=== PATIENT | female | born 1930 | race Caucasian/White ===

== ENCOUNTER 2019-04-17 18:48 | Inpatient (IN) | payer MEDICARE, OTHER ==
[2019-04-17] MEDS ORDERED: BABY ASPIRIN 81 MG CHEW PO ONE (18:58)
[2019-04-17] MEDS ORDERED: ROCEPHIN 1 Gm-D5w 50 ml Bag** 1 G/50 ML IVPB IV ONE (19:08)
[2019-04-17] MEDS: DUONEB 0.5-3 MG/3 ml Neb IH PRN ×2 (19:18→19:40)
[2019-04-17] MEDS ORDERED: Zithromax 500 MG/ 250 ML NaCl Premix 500 MG/250 ML IVPB IV ONE (19:39)
[2019-04-17 20:00] LABS: Absolute Neutrophil Ct (ANC) 3.46 (1.4-6.9); BASOPHIL % 0.6 % (0.0-0.4); Basophil (Absolute #) 0.03 (0-0.4); Eosinophil % 1.5 % (0.00-5.0); Eosinophil (Absolute #) 0.07 (0-0.5); Hematocrit 37.5 % (35-47); Hemoglobin 12.6 gm/dl (12.0-16.0); Lymphocytes % 14.8 % (24.0-44.0); Mean Cell Volume 92.1 fl (78-100); Mean Corpuscular Hgb Concent. 33.6 g/dl (32-36); Mean Platelet Volume 11.4 fl (7.5-11.0); Monocyte (Absolute #) 0.47 (0.0-1.3); Monocytes % 9.9 % (0.0-12.0); Neutrophil % 73.2 % (36.0-66.0); Platelet Count 112 K/mm3 (150-450); Red Blood Count 4.07 M/mm3 (4.1-5.4); Red Cell Distribution Width 12.2 % (11.5-14.0); White Blood Count 4.7 K/mm3 (4.0-10.5)
[2019-04-17 20:03] LABS: INR 1.13 (0.8-3.0); PROTIME 12.8 SECONDS (9.95-12.35)
[2019-04-17 20:16] LABS: ALBUMIN 3.8 g/dL (3.5-5.0); ANION GAP 12.6 MEQ/L (5-15); BILIRUBIN,TOTAL 0.5 mg/dL (0.2-1.3); Creatinine 1 1.34 mg/dL (0.52-1.04); MAGNESIUM 1.7 mg/dL (1.6-2.3); Potassium 4.3 mmol/L (3.5-5.1); Total Protein 7.2 g/dL (6.3-8.2)
[2019-04-17] MEDS ORDERED: Zofran 4 MG/2 ML VIAL ONE (20:18)
[2019-04-18] MEDS ORDERED: TYLENOL 325 MG ONE (01:33)
[2019-04-18] MEDS: solu-MEDROL 125 MG IV SCH ×3 (08:15→21:28)
--- NOTE | 2019-04-18 09:24 | XRAY ---
Indication: Cough and dyspnea. Comparison: February 26, 2017. Portable chest again hyperinflated with left lung suture material. No focal infiltrate, consolidation, or large effusion. Heart is not enlarged for AP portable technique. Bony thorax intact again with mild osteopenia and degenerative changes. Impression: Nonacute hyperinflated chest with chronic features.
--- NOTE | 2019-04-18 09:24 | HP ---
CHIEF COMPLAINT: Cough, shortness of breath, weakness. HISTORY OF PRESENT ILLNESS: The patient is an 88 year-old white female who developed a cough which she reports is slightly productive of greenish phlegm with increasing shortness of breath and weakness and presented to the emergency room where she was diagnosed with right lower lobe pneumonia. PAST MEDICAL HISTORY: Otherwise significant for diabetes mellitus type 2, gastroesophageal reflux disease and hypertension. HOME MEDICATIONS: Chlorthalidone 25 mg daily, Glipizide 5 mg daily, lansoprazole 30 mg daily, Lisinopril 40 mg daily, metoprolol sustained release 100 mg daily. ALLERGIES: SULFA. PHYSICAL EXAMINATION: Revealed an elderly white female currently in no obvious distress. She does have a productive sounding cough. VITAL SIGNS: On admission showed temperature 98.3F, pulse 77, respiratory rate 22 and blood pressure 185/91. O2 saturation 91%. HEENT: Normocephalic, atraumatic. Pupils equal round reactive to light. Extraocular movements intact. Oropharynx is pink and moist. NECK: Supple without lymphadenopathy, thyromegaly or JVD. CHEST: Reveals slight wheezes particularly on the right side. HEART: Regular rate and rhythm without murmurs, rubs or gallops. ABDOMEN: Soft. No palpable masses. EXTREMITIES: Without cyanosis, clubbing or edema. NEUROLOGIC: The patient is alert and oriented x3. LAB DATA AND TESTS: The patient's emergency room evaluation otherwise included laboratory studies showing white count of 4,700, hemoglobin of 12.6, PLT count 112,000 with what appeared to be a slight left shift with 73.3% granulocytes. Metabolic panel showed glucose 145 nonfasting, BUN 27, creatinine 1.34. Electrolytes normal. Liver enzymes were normal. ProBNP was normal. The international normalized ratio is 1.13. Troponin less than 0.012. ASSESSMENT: A patient with pneumonia. She has been admitted to the hospital for IV antibiotics. She has already received Rocephin and Zithromax in the emergency room. She was getting nebulizer treatments. We will provide her flutter valve oxygen support to keep her saturations above 90%. The patient will receive Solu-Medrol at 80 every 8 hours for her what appears to be exacerbation of chronic obstructive pulmonary disease as well as the pneumonia.
[2019-04-18] MEDS: Mucinex 600MG ER Tabs PO SCH ×2 (09:39→21:17)
[2019-04-18] MEDS: Ecotrin 325 MG PO SCH (09:39)
[2019-04-18] MEDS: Zithromax 250 MG TABLET PO SCH (09:39)
[2019-04-18] MEDS: Glucotrol 5 MG PO SCH (09:40)
[2019-04-18] MEDS: Protonix 40MG Tablet PO SCH (09:40)
[2019-04-18] MEDS: Toprol Xl 100 MG PO SCH (09:40)
[2019-04-18] MEDS: hydroDIURIL 25 MG PO SCH (09:40)
[2019-04-18] MEDS: Zestril 20 MG PO SCH (09:40)
[2019-04-18] MEDS ORDERED: ROCEPHIN 1 Gm-D5w 50 ml Bag** 1 G/50 ML IVPB IV SCH (10:00)
[2019-04-18] MEDS ORDERED: NON-FORMULARY ITEM (Chlorthalidone [Chlorthalidone] 25 MG) PO SCH (10:00)
[2019-04-18] MEDS ORDERED: Zithromax 500 MG/ 250 ML NaCl Premix 500 MG/250 ML IVPB IV SCH (10:00)
[2019-04-18] MEDS ORDERED: NON-FORMULARY ITEM (Lisinopril [Lisinopril] 40 MG) PO SCH (10:00)
[2019-04-18] MEDS ORDERED: Sodium Chloride 0.9% 10 ML FLUSH Syringe IV PRN (15:00)
[2019-04-18] MEDS: NovoLOG Insulin SQ PRN ×2 (16:17→21:18)
[2019-04-18] MEDS: TYLENOL 325 MG PO PRN (21:17)
[2019-04-18] MEDS: ROCEPHIN 1 Gm-D5w 50 ml Bag** 1 G/50 ML IVPB IV SCH (21:17)
[2019-04-18] MEDS: Sodium Chloride 0.9% 10 ML FLUSH Syringe IV SCH (21:18)
[2019-04-19] MEDS: solu-MEDROL 125 MG IV SCH ×3 (06:17→21:23)
[2019-04-19] MEDS: Sodium Chloride 0.9% 10 ML FLUSH Syringe IV SCH ×3 (06:17→21:24)
[2019-04-19 09:09] LABS: Appearance CLEAR (CLEAR); Bilirubin NEGATIVE (NEGATIVE); Blood NEGATIVE Ery/ul (0-5); Epithelial Cells RARE /HPF (FEW); Glucose NEGATIVE (NEGATIVE); Ketones TRACE (NEGATIVE); Leukocyte Esterase TRACE (NEGATIVE); Mucus SLIGHT /HPF (NEGATIVE); Nitrite NEGATIVE (NEGATIVE); Protein,Urine Dip NEGATIVE (Negative); Specific Gravity 1.024 (1.005-1.025); Urobilinogen NEGATIVE mg/dL (0-1)
[2019-04-19 09:11] LABS: Bacteria NONE SEEN /HPF (NEGATIVE)
--- NOTE | 2019-04-19 09:17 | PCM.NOTE ---
Date and Time: 04/19/19914 Subjective Assessment: Pt. feeling better today, no longer requiring oxygen, apetite good, concerned about elevation of her blood sugars. - Review of Systems Constitutional: No Fever, No Chills Ears, Nose, & Throat: No Symptoms Respiratory: Wheezing Cardiac: No Chest Pain, No Edema, No Syncope Abdominal/Gastrointestinal: No Abdominal Pain, No Nausea, No Vomiting, No Diarrhea Genitourinary Symptoms: No Dysuria Skin: No Rash Objective Exam General Appearance: no apparent distress, alert Neurologic Exam: alert Skin Exam: normal color, warm, dry Ears, Nose, Throat Exam: normal ENT inspection, pharynx normal, moist mucous membranes Neck Exam: normal inspection, non-tender, supple, full range of motion Respiratory Exam: normal breath sounds (decreased air flow in lower lung pickens) Cardiovascular Exam: regular rate/rhythm, normal heart sounds OBJECTIVE DATA Vital Signs: Vital Signs - 24 hr Temp Pulse Resp BP Pulse Ox 04/19/19 08:00 97.7 F 66 20 168/71 97 04/19/19 06:54 56 L 16 97 04/19/19 03:41 98.3 F 57 L 17 142/66 93 L 04/18/19 23:51 98.4 F 61 18 136/63 92 L 04/18/19 20:00 98.0 F 66 18 146/64 91 L 04/18/19 19:43 56 L 18 94 L 04/18/19 16:00 98.7 F 54 L 18 131/78 98 04/18/19 12:00 97.7 F 67 20 138/66 95 04/18/19 10:18 74 16 96 Oxygen-Last 24 hours O2 Percentage 2 Liters = 28% O2 Percentage 2 Liters = 28% O2 Percentage 2 Liters = 28% Pain Assessment - Last Documented Pain Intensity 0 Pain Scale Used 0-10 Pain Scale,FLACC Intake and Output: Intake & Output 04/16/19 04/17/19 04/18/19 04/19/19 11:59 11:59 11:59 11:59 Intake Total 480 1040 Output Total 400 300 Balance 80 740 Weight 74.843 kg 74.843 kg Lab Results: Accuchecks Date 04/19/19 Date 04/18/19 Date 04/18/19 Date 04/18/19 Date 04/18/19 Time 08:30 Time 16:20 Time 16:20 Time 11:20 Time 11:42 Accucheck Value: 180 Accucheck Value: 248 Accucheck Value: 223 Accucheck Value: 189 Accucheck Value: 189 Lab Results-Last 24 Hours 04/18/19 04/19/19 Range/Units 05:30 06:30 Hemoglobin A1c 6.14 H (4.5-6.0) % Urine Color YELLOW (YELLOW) Urine Appearance CLEAR (CLEAR) Urine pH 5.0 (5-6) Ur Specific [place] 1.024 (1.005-1.025) Urine Protein NEGATIVE (Negative) Urine Ketones TRACE (NEGATIVE) Urine Blood NEGATIVE (0-5) Mukul/ul Urine Nitrite NEGATIVE (NEGATIVE) Urine Bilirubin NEGATIVE (NEGATIVE) Urine Urobilinogen NEGATIVE (0-1) mg/dL Ur Leukocyte Esterase TRACE (NEGATIVE) Urine WBC (Auto) 3-5 (0-5) /HPF Urine RBC (Auto) NONE (0-2) /HPF U Hyaline Cast (Auto) 6-10 (0-2) /LPF U Epithel Cells (Auto) RARE (FEW) /HPF Urine Bacteria (Auto) NONE SEEN (NEGATIVE) /HPF Other Casts (Auto) NEGATIVE (NEGATIVE) /LPF Urine Mucus (Auto) SLIGHT (NEGATIVE) /HPF Urine Culture Reflexed NO (NO) Urine Glucose NEGATIVE (NEGATIVE) mg/dL Radiology Exams: Radiology Procedures Category Date Time Status CHEST 1 VIEW (PORTABLE) Stat Exams 04/17/19 18:59 Completed Multi-Disciplinary Progress Notes: Multi-Disciplinary Progress Notes 04/18/19 21:30 Respiratory Note by Derrek Arteaga USED FLUTTER W/ PT DURING MY ASSESSMENT AND MADE HER SDC. PT AWARE OF NEED/USE FOR DEVICE AND KNOWS TO CALL FOR RT IF NEEDED. Initialized on 04/18/19 21:30 - END OF NOTE 04/18/19 15:03 Respiratory Note by Sangeetha Khan RESTING SPO2 89-90%. PT DID COMPLAIN OF SOB DURING FLUTTER AND COUGHING. PT WANTED TO PUT O2 ON AT THIS TIME Initialized on 04/18/19 15:03 - END OF NOTE Assessment/Plan (1) COPD (chronic obstructive pulmonary disease) Current Visit: Yes Status: Acute Assessment & Plan: improved continue iv abx and iv steroids (2) Pneumonia Current Visit: Yes Status: Acute Assessment & Plan: continue iv abx Code(s): J18.9 - PNEUMONIA, UNSPECIFIED ORGANISM
[2019-04-19] MEDS: Zestril 20 MG PO SCH (09:21)
[2019-04-19] MEDS: Ecotrin 325 MG PO SCH (09:21)
[2019-04-19] MEDS: Toprol Xl 100 MG PO SCH (09:21)
[2019-04-19] MEDS: Glucotrol 5 MG PO SCH (09:21)
[2019-04-19] MEDS: hydroDIURIL 25 MG PO SCH (09:21)
[2019-04-19] MEDS: Protonix 40MG Tablet PO SCH (09:21)
[2019-04-19] MEDS: Zithromax 250 MG TABLET PO SCH (09:21)
[2019-04-19] MEDS: Mucinex 600MG ER Tabs PO SCH ×2 (09:21→21:23)
[2019-04-19] MEDS: TYLENOL 325 MG PO PRN (21:23)
[2019-04-19] MEDS: ROCEPHIN 1 Gm-D5w 50 ml Bag** 1 G/50 ML IVPB IV SCH (21:24)
[2019-04-20] MEDS: solu-MEDROL 125 MG IV SCH (05:46)
[2019-04-20] MEDS: Sodium Chloride 0.9% 10 ML FLUSH Syringe IV SCH (05:46)
[2019-04-20] MEDS: hydroDIURIL 25 MG PO SCH (08:39)
[2019-04-20] MEDS: Zithromax 250 MG TABLET PO SCH (08:39)
[2019-04-20] MEDS: Mucinex 600MG ER Tabs PO SCH (08:40)
[2019-04-20] MEDS: Toprol Xl 100 MG PO SCH (08:40)
[2019-04-20] MEDS: Glucotrol 5 MG PO SCH (08:40)
[2019-04-20] MEDS: Zestril 20 MG PO SCH (08:40)
[2019-04-20] MEDS: Protonix 40MG Tablet PO SCH (08:40)
[2019-04-20] MEDS: Ecotrin 325 MG PO SCH (08:40)
[2019-04-20 11:39] VITALS: BP 125/67; PULSE 65; O2SAT 93
[2019-04-20] MEDS: NovoLOG Insulin SQ PRN (11:47)
--- NOTE | 2019-04-20 12:53 | PCM.DS ---
Discharge Summary Date of Admission: 04/18/19 01:23 Date of Discharge: 04/20/2019 Admitting Physician: JESSE SALTER Primary Care Provider: JESSE SALTER Allergies Allergies Sulfa (Sulfonamide Antibiotics) Allergy (Unknown, Verified 11/03/15 23:04) reports that she has not had since she used to see dr. mi carranza - but just makes her sick Hospital Summary - Hospital Course Hospital Course: Pt. admitted on 04/18/19 for pneumonia and COPD exacerbation, pt. steadily improved, no longer required oxygen by 04/19 but still course breath sounds, by lung exam had cleared with good oxygen saturations and feeling good, it was felt the patient was stable and ready for discharge with steroid taper, antibiotics augmentin and z-pack, with PRN albuterol nebs - Vitals & Intake/Output Vital Signs: Vital Signs Temperature 96.0 F 04/20/19 11:38 Pulse Rate 65 04/20/19 11:38 Respiratory Rate 16 04/20/19 11:38 Blood Pressure 125/67 04/20/19 11:38 O2 Sat by Pulse Oximetry 93 L 04/20/19 11:38 Oxygen-Last Documented O2 Percentage 2 Liters = 28% Intake & Output: Intake & Output 04/18/19 04/19/19 04/20/19 04/21/19 11:59 11:59 11:59 11:59 Intake Total 480 1280 1042 Output Total 627 623 2997 Balance 80 980 42 Weight 74.843 kg 74.843 kg - Lab Result Diagrams: 04/17/19 18:58 04/17/19 18:58 Lab Results-Last 24 Hrs: Accuchecks Date 04/20/19 Date 04/20/19 Date 04/19/19 Date 04/19/19 Time 11:34 Time 07:50 Time 22:00 Time 16:30 Accucheck Value: 220 Accucheck Value: 223 Accucheck Value: 165 Micro Results-Entire Visit: Accuchecks Date 04/20/19 Date 04/20/19 Date 04/19/19 Date 04/19/19 Time 11:34 Time 07:50 Time 22:00 Time 16:30 Accucheck Value: 220 Accucheck Value: 223 Accucheck Value: 165 - Procedures and Test Procedures and Tests throughout Hospitalization: Therapy Orders & Screens 04/18/19 08:42 Flutter Therapy TID Comment: Diagnosis: rll pneumonia 04/18/19 08:44 Oxygen Nasal Cannula 2 lpm Comment: Diagnosis: rll pneumonia Peak Expiratory Flow Rate ONCE Comment: Reason For Exam: Diagnosis: rll pneumonia Respiratory Therapy Assessment DAILY Comment: Diagnosis: rll pneumonia Discharge Exam General Appearance: no apparent distress, alert Neurologic Exam: alert, cooperative Eye Exam: EOMI Ears, Nose, Throat Exam: normal ENT inspection Neck Exam: normal inspection, non-tender, supple Respiratory Exam: normal breath sounds Cardiovascular Exam: regular rate/rhythm Gastrointestinal/Abdomen Exam: soft, normal bowel sounds, No tenderness, No distention, No guarding Pelvic Exam: deferred Rectal Exam: deferred Back Exam: normal inspection Extremity Exam: normal inspection Skin Exam: normal color, warm, dry Lymphatic Exam: No adenopathy Final Diagnosis/Problem List - Final Discharge Diagnosis/Problem (1) COPD (chronic obstructive pulmonary disease) Current Visit: Yes Status: Acute Assessment & Plan: improved, no longer requiring oxygen (2) Pneumonia Current Visit: Yes Status: Acute Assessment & Plan: exam good with good air exchange Code(s): J18.9 - PNEUMONIA, UNSPECIFIED ORGANISM - Discharge Discharge Date: 04/20/19 Disposition: Home, Self-Care Condition: Stable Prescriptions: Continue Lisinopril 40 mg PO DAILY Metoprolol Succinate 100 mg [Toprol Xl 100 MG] 100 mg PO DAILY glipiZIDE [Glipizide] 5 mg PO DAILY Lansoprazole 30 mg PO DAILY Chlorthalidone 25 mg PO DAILY Follow up with: JESSE SALTER [Primary Care Provider] - 1 Week
== END 2019-04-20 13:35 | disposition home or self-care (01) | DRG 190 ==
LOC: ED 18:48 → UNDOADMIN 22:53 → MED SURG 22:53
PROVIDERS: ADMIT Family Medicine; ATTEND Family Medicine
DX: J44.1 Chronic obstructive pulmonary disease with (acute) exacerbation (principal); J18.9 Pneumonia, unspecified organism; R53.1 Weakness; E11.9 Type 2 diabetes mellitus without complications; I10 Essential (primary) hypertension; Z79.899 Other long term (current) drug therapy
CPT/HCPCS: 36415; 71045; 80053; 81001; 82550; 82962; 83036; 83735; 83880; 84484; 85025; 85610; 85730; 94640; 94667; 94760; 96365; 96367; 96374; 96375; 99285; J0456; J0696; J2405; J2930; A9270-GY

== ENCOUNTER 2020-07-19 14:07 | Emergency (ER) | payer MEDICARE, OTHER ==
--- NOTE | 2020-07-19 14:11 | ERPHSYRPT ---
- History of Present Illness Time Seen by Provider: 07/19/20 14:11 Historian: patient, family Exam Limitations: no limitations Physician History: This is an 89-year-old white female who lives at home and presents with approximately 2 to 3-day history of vertigo. Patient felt like she was going to the "passed out". Patient was brought to her primary care provider office today by her daughter. The patient mentioned that she was having some substernal central. Chest pressure and there was pressure that radiated into her left arm. Patient denies shortness of breath. She denies fever. She denies abdominal pain. She denies vomiting and diarrhea. Patient does have a history of gastroesophageal reflux disease, COPD and hypertension. She is also a tit-idqipof-lnufrtwwy diabetic. She has no known coronary artery disease and does not see a technology director. Timing/Duration: day(s) (2 to 3 days ago) Activities at Onset: none Quality: pressure Location: substernal, central Chest Pain Radiation: arm (Left) Severity of Pain-Max: mild Severity of Pain-Current: mild Modifying Factors: Improves With: nothing Associated Symptoms: dizziness Prior Chest Pain/Cardiac Workup: no prior chest pain Nitro Today/Relief: no nitro taken today Aspirin Treatment Today: no aspirin today Allergies/Adverse Reactions: Sulfa (Sulfonamide Antibiotics) Allergy (Unknown, Verified 07/19/20 14:23) reports that she has not had since she used to see dr. mi carranza - but just makes her sick Home Medications: Lisinopril 40 mg PO DAILY 11/03/15 [History] Chlorthalidone 25 mg PO DAILY 04/18/19 [History] Lansoprazole 30 mg PO DAILY 04/18/19 [History] Metoprolol Succinate 100 mg [Toprol Xl 100 MG] 100 mg PO DAILY 04/18/19 [History] glipiZIDE [Glipizide] 5 mg PO DAILY 04/18/19 [History] Hx Tetanus, Diphtheria Vaccination/Date Given: No Hx Influenza Vaccination/Date Given: Yes Hx Pneumococcal Vaccination/Date Given: Yes Travel Risk - International Travel Have you traveled outside of the country in past 3 weeks: No - Coronavirus Screening Are you exhibiting any of the following symptoms?: No Close contact with a COVID-19 positive Pt in past 14-21 Days: No - Vaccine Status Have you recieved a Covid-19 vaccination: No - Review of Systems Constitutional: No Symptoms Eyes: No Symptoms Ears, Nose, & Throat: No Symptoms Respiratory: No Symptoms Cardiac: Chest Pain (Described as a pressure) Abdominal/Gastrointestinal: No Symptoms Genitourinary Symptoms: No Symptoms Musculoskeletal: No Symptoms Skin: No Symptoms Neurological: No Symptoms Psychological: No Symptoms Endocrine: No Symptoms Hematologic/Lymphatic: No Symptoms Immunological/Allergic: No Symptoms All Other Systems: Reviewed and Negative - Past Medical History Pertinent Past Medical History: Yes Neurological History: No Pertinent History ENT History: No Pertinent History Cardiac History: Hypertension Respiratory History: No Pertinent History Endocrine Medical History: No Pertinent History Musculoskeletal History: Arthritis GI Medical History: No Pertinent History History: No Pertinent History Psycho-Social History: No Pertinent History Female Reproductive Disorders: No Pertinent History - Past Surgical History Past Surgical History: Yes Cardiac: No Pertinent History Respiratory: Lobectomy Gastrointestinal: Cholecystectomy Genitourinary: No Pertinent History Musculoskeletal: No Pertinent History Female Surgical History: Hysterectomy - Social History Smoking Status: Never smoker Exposure to second hand smoke: No Drug Use: none Patient Lives Alone: No - Nursing Vital Signs Nursing Vital Signs: Initial Vital Signs Temperature 97.9 F 07/19/20 14:08 Pulse Rate 79 07/19/20 14:08 Blood Pressure 190/72 07/19/20 14:08 O2 Sat by Pulse Oximetry 98 07/19/20 14:08 Pain Scale Pain Intensity 2 - Physical Exam General Appearance: no apparent distress, alert, anxiety Eye Exam: PERRL/EOMI, eyes nml inspection Ears, Nose, Throat Exam: normal ENT inspection, moist mucous membranes Neck Exam: normal inspection, non-tender, supple, full range of motion Respiratory Exam: normal breath sounds, chest tenderness (Described as a pressure), lungs clear, airway intact, No respiratory distress Cardiovascular Exam: regular rate/rhythm, normal heart sounds, normal peripheral pulses Gastrointestinal/Abdomen Exam: soft, normal bowel sounds, No tenderness Pelvic Exam: not done Rectal Exam: not done Back Exam: normal inspection, normal range of motion, No CVA tenderness, No vertebral tenderness Extremity Exam: normal inspection, normal range of motion, pelvis stable Neurologic Exam: alert, oriented x 3, cooperative, principal android developer II-XII nml as tested, normal mood/affect, nml cerebellar function, nml station & gait, sensation nml Skin Exam: normal color, warm, dry Lymphatic Exam: No adenopathy SpO2 Interpretation: normal O2 Delivery: Room Air - Course Nursing assessment & vital signs reviewed: Yes EKG Interpreted by Me: RATE (81), Sinus Rhythm, Left [place] Deviation, Other (When compared to EKG dated 04/18/2019, there is new supraventricular bigeminy and a short TX interval present. I do not appreciate any acute ischemic changes on today's EKG) Ordered Tests: Active Orders 24 hr Category Date Time Status Tree Driller STAT Care 07/19/20 14:16 Active Clean Catch Urine Specimen STAT Care 07/19/20 14:15 Active EKG-ER Only STAT Care 07/19/20 14:15 Active IV Insertion STAT Care 07/19/20 14:15 Active Pulse Oximetry (ED) STAT Care 07/19/20 14:15 Active CHEST 1 VIEW (PORTABLE) Stat Exams 07/19/20 14:15 Taken HEAD WITHOUT CONTRAST [CT] Stat Exams 07/19/20 14:17 Completed CBC W DIFF Stat Lab 07/19/20 14:29 Completed CMP Stat Lab 07/19/20 14:29 Completed D-DIMER QUANTITATIVE Stat Lab 07/19/20 14:29 Completed NT PRO BNP Stat Lab 07/19/20 14:29 Completed PROTIME WITH INR Stat Lab 07/19/20 14:29 Completed TROPONIN Q3H Lab 07/19/20 14:29 Completed TROPONIN Q3H Lab 07/19/20 17:25 Completed TROPONIN Q3H Lab 07/19/20 20:15 Ordered TROPONIN Q3H Lab 07/19/20 23:15 Ordered TROPONIN Q3H Lab 07/20/20 02:15 Ordered UA W/RFX UR CULTURE Stat Lab 07/19/20 15:33 Completed Medication Summary Generic Name Dose Route Start Last Admin Trade Name Freq PRN Reason Stop Dose Admin Sodium Chloride 1,000 mls @ 50 mls/hr 07/19/20 14:15 07/19/20 14:51 Sodium Chloride 0.9% 1000 Ml IV 08/18/20 14:14 50 mls/hr .Q20H MIGUEL A Administration Discontinued Medications Generic Name Dose Route Start Last Admin Trade Name Freq PRN Reason Stop Dose Admin Aspirin 324 mg 07/19/20 14:15 07/19/20 14:51 Baby Aspirin 81 Mg Chew PO 07/19/20 14:16 324 mg STAT ONE Administration Aspirin Confirm 07/19/20 14:49 Baby Aspirin 81 Mg Chew Administered 07/19/20 14:50 Dose 324 mg .ROUTE .STK-MED ONE Nitroglycerin 0.4 mg 07/19/20 14:15 07/19/20 14:51 Nitrostat 0.4 Mg (Ed) SL 07/19/20 14:16 0.4 mg STAT ONE Administration Nitroglycerin Confirm 07/19/20 14:49 Nitrostat 0.4 Mg (Ed) Administered 07/19/20 14:50 Dose 0.4 mg SL .STK-MED ONE Ondansetron HCl 4 mg 07/19/20 17:14 07/19/20 17:15 Zofran 4 Mg/2 Ml Vial IV 07/19/20 17:15 4 mg STAT ONE Administration Ondansetron HCl Confirm 07/19/20 17:14 Zofran 4 Mg/2 Ml Vial Administered 07/19/20 17:15 Dose 4 mg .ROUTE .STK-MED ONE Lab/Rad Data: Laboratory Result Diagrams 07/19/20 14:29 07/19/20 14:29 Laboratory Results 07/19/20 07/19/20 07/19/20 Range/Units 17:25 15:33 14:29 WBC (4.0-10.5) K/mm3 RBC (4.1-5.4) M/mm3 Hgb (12.0-16.0) gm/dl Hct (35-47) % MCV (78-100) fl MCH (26-32) pg MCHC (32-36) g/dl RDW (11.5-14.0) % Plt Count (150-450) K/mm3 MPV (7.5-11.0) fl Gran % (36.0-66.0) % Eos # (Auto) (0-0.5) Absolute Lymphs (auto) (1.0-4.6) Absolute Monos (auto) (0.0-1.3) Lymphocytes % (24.0-44.0) % Monocytes % (0.0-12.0) % Eosinophils % (0.00-5.0) % Basophils % (0.0-0.4) % Absolute Granulocytes (1.4-6.9) Basophils # (0-0.4) PT 12.5 H (9.95-12.35) SECONDS INR 1.11 (0.8-3.0) D-Dimer 468 (215-500) ng/mL Sodium (137-145) mmol/L Potassium (3.5-5.1) mmol/L Chloride (98-107) mmol/L Carbon Dioxide (22-30) mmol/L Anion Gap (5-15) MEQ/L BUN (7-17) mg/dL Creatinine (0.52-1.04) mg/dL Estimated GFR ML/MIN Glucose (74-106) mg/dL Calcium (8.4-10.2) mg/dL Total Bilirubin (0.2-1.3) mg/dL AST (14-36) U/L ALT (0-35) U/L Alkaline Phosphatase (38-126) U/L Troponin I < 0.012 (0.000-0.034) ng/mL NT-Pro-B Natriuret Pep (0-1800) pg/mL Serum Total Protein (6.3-8.2) g/dL Albumin (3.5-5.0) g/dL Urine Color YELLOW (YELLOW) Urine Appearance CLEAR (CLEAR) Urine pH 5.0 (5-6) Ur Specific [place] 1.014 (1.005-1.025) Urine Protein NEGATIVE (Negative) Urine Ketones NEGATIVE (NEGATIVE) Urine Blood NEGATIVE (0-5) Mukul/ul Urine Nitrite NEGATIVE (NEGATIVE) Urine Bilirubin NEGATIVE (NEGATIVE) Urine Urobilinogen 2 (0-1) mg/dL Ur Leukocyte Esterase NEGATIVE (NEGATIVE) Urine WBC (Auto) 3-5 (0-5) /HPF Urine RBC (Auto) 0-2 (0-2) /HPF U Epithel Cells (Auto) FEW (FEW) /HPF Urine Bacteria (Auto) MANY (NEGATIVE) /HPF Urine Culture Reflexed NO (NO) Urine Glucose NEGATIVE (NEGATIVE) mg/dL 07/19/20 07/19/20 07/19/20 Range/Units 14:29 14:29 14:29 WBC 7.1 (4.0-10.5) K/mm3 RBC 4.30 (4.1-5.4) M/mm3 Hgb 13.1 (12.0-16.0) gm/dl Hct 40.0 (35-47) % MCV 93.0 (78-100) fl MCH 30.5 (26-32) pg MCHC 32.8 (32-36) g/dl RDW 12.4 (11.5-14.0) % Plt Count 153 (150-450) K/mm3 MPV 12.2 H (7.5-11.0) fl Gran % 68.2 H (36.0-66.0) % Eos # (Auto) 0.07 (0-0.5) Absolute Lymphs (auto) 1.75 (1.0-4.6) Absolute Monos (auto) 0.43 (0.0-1.3) Lymphocytes % 24.5 (24.0-44.0) % Monocytes % 6.0 (0.0-12.0) % Eosinophils % 1.0 (0.00-5.0) % Basophils % 0.3 (0.0-0.4) % Absolute Granulocytes 4.86 (1.4-6.9) Basophils # 0.02 (0-0.4) PT (9.95-12.35) SECONDS INR (0.8-3.0) D-Dimer (215-500) ng/mL Sodium 138 (137-145) mmol/L Potassium 4.5 (3.5-5.1) mmol/L Chloride 104 (98-107) mmol/L Carbon Dioxide 27 (22-30) mmol/L Anion Gap 11.6 (5-15) MEQ/L BUN 42 H (7-17) mg/dL Creatinine 1.78 H (0.52-1.04) mg/dL Estimated GFR 28.6 ML/MIN Glucose 105 (74-106) mg/dL Calcium 9.4 (8.4-10.2) mg/dL Total Bilirubin 0.50 (0.2-1.3) mg/dL AST 21 (14-36) U/L ALT 11 (0-35) U/L Alkaline Phosphatase 96 (38-126) U/L Troponin I < 0.012 (0.000-0.034) ng/mL NT-Pro-B Natriuret Pep 274 (0-1800) pg/mL Serum Total Protein 7.2 (6.3-8.2) g/dL Albumin 4.3 (3.5-5.0) g/dL Urine Color (YELLOW) Urine Appearance (CLEAR) Urine pH (5-6) Ur Specific [place] (1.005-1.025) Urine Protein (Negative) Urine Ketones (NEGATIVE) Urine Blood (0-5) Mukul/ul Urine Nitrite (NEGATIVE) Urine Bilirubin (NEGATIVE) Urine Urobilinogen (0-1) mg/dL Ur Leukocyte Esterase (NEGATIVE) Urine WBC (Auto) (0-5) /HPF Urine RBC (Auto) (0-2) /HPF U Epithel Cells (Auto) (FEW) /HPF Urine Bacteria (Auto) (NEGATIVE) /HPF Urine Culture Reflexed (NO) Urine Glucose (NEGATIVE) mg/dL - Progress Progress: improved, re-examined Air Movement: good Progress Note: 07/19/20 14:53 CAT scan of the head without contrast reveals no evidence of any acute intracranial abnormality. 07/19/20 17:11 Patient was reexamined and reevaluated. She has no chest pain. She is not dizzy. Patient states that she feels pretty good. She wants to go home if possible. Blood Culture(s) Obtained: No Antibiotics given: No Counseled pt/family regarding: lab results, diagnosis, need for follow-up, rad results - Departure Departure Disposition: Home Clinical Impression: Non-cardiac chest pain, Dizziness Condition: Stable Critical Care Time: No Referrals: JESSE SALTER [Primary Care Provider] - Additional Instructions: Drink plenty of fluids. Take your medication as prescribed. Call your primary care doctor's office tomorrow to make arrangements for follow-up appointment for further management. Return to the emergency department if your symptoms recur. Prescriptions: Ondansetron ODT 4 MG [Zofran Odt 4 mg] 4 mg PO Q6H PRN PRN #10 tab.rapdis PRN Reason: Vomiting
[2020-07-19] MEDS ORDERED: Nitrostat 0.4 MG (ED) SL ONE ×2 (14:15→14:49)
[2020-07-19] MEDS ORDERED: BABY ASPIRIN 81 MG CHEW PO ONE (14:15)
[2020-07-19] MEDS ORDERED: Sodium Chloride 0.9% 1000 ML 1,000 ML IV SCH (14:15)
[2020-07-19 14:38] LABS: Absolute Neutrophil Ct (ANC) 4.86 (1.4-6.9); BASOPHIL % 0.3 % (0.0-0.4); Basophil (Absolute #) 0.02 (0-0.4); Eosinophil (Absolute #) 0.07 (0-0.5); Hemoglobin 13.1 gm/dl (12.0-16.0); INR 1.11 (0.8-3.0); Lymphocyte (Absolute #) 1.75 (1.0-4.6); Lymphocytes % 24.5 % (24.0-44.0); Mean Corpuscular Hemoglobin 30.5 pg (26-32); Mean Corpuscular Hgb Concent. 32.8 g/dl (32-36); Mean Platelet Volume 12.2 fl (7.5-11.0); Monocyte (Absolute #) 0.43 (0.0-1.3); Neutrophil % 68.2 % (36.0-66.0); PROTIME 12.5 SECONDS (9.95-12.35); Platelet Count 153 K/mm3 (150-450); Red Cell Distribution Width 12.4 % (11.5-14.0); White Blood Count 7.1 K/mm3 (4.0-10.5)
[2020-07-19] MEDS ORDERED: BABY ASPIRIN 81 MG CHEW ONE (14:49)
[2020-07-19] MEDS ORDERED: Sodium Chloride 0.9% 1000 ML 1,000 ML ONE (14:49)
--- NOTE | 2020-07-19 14:49 | XRAY ---
Indication: Nausea and dizziness. History lung carcinoma. Multiple contiguous axial images obtained through the head without contrast. Comparison: None Age-appropriate global atrophy. No acute intracranial hemorrhage, abnormal extra-axial fluid collection, or mass effect. Fourth ventricle is midline without hydrocephalus. Wilks-white matter differentiation preserved. Bony calvarium intact. Visualized paranasal sinuses and mastoid air cells are clear. Impression: Negative CT head without contrast exam.
[2020-07-19 14:51] LABS: ALBUMIN 4.3 g/dL (3.5-5.0); ANION GAP 11.6 MEQ/L (5-15); BILIRUBIN,TOTAL 0.5 mg/dL (0.2-1.3); Calcium 9.4 mg/dL (8.4-10.2); Creatinine 1 1.78 mg/dL (0.52-1.04); EST GLOMERULAR FILTRATION RATE 28.6 ML/MIN; Potassium 4.5 mmol/L (3.5-5.1); Total Protein 7.2 g/dL (6.3-8.2)
[2020-07-19 15:44] LABS: Appearance CLEAR (CLEAR); Bacteria MANY /HPF (NEGATIVE); Bilirubin NEGATIVE (NEGATIVE); Blood NEGATIVE Ery/ul (0-5); Epithelial Cells FEW /HPF (FEW); Glucose NEGATIVE (NEGATIVE); Ketones NEGATIVE (NEGATIVE); Leukocyte Esterase NEGATIVE (NEGATIVE); Nitrite NEGATIVE (NEGATIVE); Protein,Urine Dip NEGATIVE (Negative); RBC 0-2 /HPF (0-2); Specific Gravity 1.014 (1.005-1.025); Urobilinogen 2 mg/dL (0-1)
[2020-07-19] MEDS ORDERED: Zofran 4 MG/2 ML VIAL ONE (17:14)
[2020-07-19] MEDS ORDERED: Zofran 4 MG/2 ML VIAL IV ONE (17:14)
[2020-07-19 18:15] VITALS: BP 106/54; PULSE 59; O2SAT 97
--- NOTE | 2020-07-20 08:00 | XRAY ---
Indication: Chest pressure. Right lung carcinoma. Comparison: None Portable chest remains clear with stable incidental left lung suture material. Heart and mediastinal structures within normal limits. Bony thorax intact again with mild osteopenia and degenerative changes. Impression: Continued nonacute chest with chronic features.
== END 2020-07-19 18:34 | disposition home or self-care (01) ==
LOC: ED 14:07
DX: R07.89 Other chest pain (principal); R42 Dizziness and giddiness
CPT/HCPCS: 36000; 36415; 70450; 71045; 80053; 81001; 83880; 84484; 85025; 85379; 85610; 93005; 93041; 94760; 96374; 99284; J2405; A9270-GY